=== PATIENT | female | born 1985 | race Two or more races ===

== ENCOUNTER 2025-02-23 13:20 | Emergency (ER) | payer OTHER ==
[~2025-02-23] VITALS: Ht 157.5 cm; Wt 71.2 kg
[2025-02-23] MEDS ORDERED: PRENATE ELITE1 EAC2 PO (13:36)
[2025-02-23] MEDS ORDERED: PROMETRIUM200 MG PO (13:37)
[2025-02-23] MEDS ORDERED: FAMOTIDINE/PF 20 MG in 0.9 % SODIUM CHLORIDE 8 ML IV PUSH ONE (14:45)
[2025-02-23] MEDS ORDERED: RINGERS SOLUTION,LACTATED 1,000 ML IV ONE (14:45)
[2025-02-23] MEDS ORDERED: ONDANSETRON HCL 4 MG in 0.9 % SODIUM CHLORIDE 50 ML IV ONE (14:45)
[2025-02-23] MEDS ORDERED: ACETAMINOPHEN 500 MG GEL..CAP PO ONE (15:00)
[2025-02-23 16:12] LABS: BASO % 0.2 % (0.1-1.2); EOS # 0.05 (0.04-0.54); EOS % 0.4 % (0.7-7.0); LYMPH # 1.02 (1.18-3.74); LYMPH % 8.2 % (19.3-53.1); MEAN PLATELET VOLUME 8.40 fl (9.4-12.4); MONO # 0.67 (0.24-0.82); MONO % 5.4 % (4.7-12.5); NEUT # 10.65 (1.56-6.13); NEUT % 85.1 % (34.0-71.1); RED CELL DISTRIBUTION WIDTH 13.4 % (11.6-14.4)
[2025-02-23 16:42] LABS: ALT/SGPT 22.0 U/L (12-78); AST/SGOT 19.0 U/L (15-37); BILIRUBIN TOTAL 0.68 mg/dL (0.3-1.2); BUN CREA RATIO 12.0 (7.0-25.0); CREATININE SERUM 0.52 mg/dL (0.55-1.02); GFR 130.6; GLOBULINA 3.7 G/DL (2.4-3.5); GLUCOSE FASTING 101.0 mg/dL (65-100); OSMOLALITY SERUM 273.0 MOSM/KG (275-295)
[2025-02-23 17:06] LABS: HCG QUANTITATIVE 70798.0 mUI/mL (1-3)
[2025-02-23 17:15] LABS: COVID-19 AG NEGATIVE (NEGATIVE)
[2025-02-23 17:28] LABS: URINE APPEARANCE Clear; URINE BILIRRUBIN Negative (NEGATIVE); URINE BLOOD Negative; URINE COLOR Yellow; URINE GLUCOSE Negative (NEGATIVE); URINE KETONE 15 (NEGATIVE); URINE LEUKOCYTE Negative; URINE NITRATE Negative; URINE PROTEIN Negative (NEGATIVE); URINE UROBILINOGEN 1.0 E.U./dl
[2025-02-23 17:33] LABS: URINE BACTERIA 1670.0 uL (0.0-1933); URINE EPITHELIAL CELLS 15.9 uL (0.0-38.8); URINE RBC 5.4 uL (0.0-20.8); URINE WBC 15.5 uL (0.0-23.2)
[2025-02-23 17:44] LABS: URINE CAST 0.00 uL (0.0-1.40)
[2025-02-23] MEDS ORDERED: ZOFRAN8 MG PO (18:26)
[2025-02-23] MEDS ORDERED: INTESTINEX680 M1 PO (18:26)
[2025-02-23] MEDS ORDERED: PEPCID AC20 MG PO (18:27)
== END 2025-02-23 19:36 | disposition home or self-care (01) ==
LOC: ER 13:21
PROVIDERS: General Practice
DX: O21.8 Other vomiting complicating pregnancy (principal); K52.9 Noninfective gastroenteritis and colitis, unspecified; Z3A.14 14 weeks gestation of pregnancy; Z20.822 Contact with and (suspected) exposure to COVID-19